=== PATIENT | male | born 1940 | race Two or more races ===

== ENCOUNTER 2024-08-23 12:38 | Emergency (ER) | payer OTHER ==
[~2024-08-23] VITALS: Ht 175.3 cm; Wt 73.5 kg
== END 2024-08-23 15:43 | disposition home or self-care (01) ==
LOC: ER 12:39
DX: G89.11 Acute pain due to trauma (principal); M79.661 Pain in right lower leg

== ENCOUNTER 2024-09-04 11:41 | Outpatient (CLI) | payer OTHER | END 2024-09-04 11:53 | disposition home or self-care (01) | LOC: SONOGRAMA 11:41 | PROVIDERS: ATTEND Family Medicine | DX: M12.561 Traumatic arthropathy, right knee (principal); M25.561 Pain in right knee ==